=== PATIENT | female | born 1945 | race Caucasian/White ===

== ENCOUNTER → 2019-07-23 | Outpatient (CLI) | payer MEDICARE ==
--- NOTE | 2019-07-23 14:06 | Diagnostic Imaging Report ---
EXAM: CT Abdomen and Pelvis WITHOUT intravenous contrast INDICATION: Renal calculus, flank pain COMPARISON: None TECHNIQUE: Abdomen and pelvis were scanned utilizing a multidetector helical scanner from the lung base to the pubic symphysis without administration of IV contrast. Coronal and sagittal reformations were obtained. IV CONTRAST: None ORAL CONTRAST: None COMPLICATIONS: None RADIATION DOSE: Total DLP: 183.9 mGy*cm Dose modulation, iterative reconstruction, and/or weight based adjustment of the mA/kV was utilized to reduce the radiation dose to as low as reasonably achievable. FINDINGS: LOWER THORAX: Normal. HEPATOBILIARY: No focal liver lesion. Status post cholecystectomy. SPLEEN: No splenomegaly. PANCREAS: No focal masses or ductal dilatation. ADRENALS: No adrenal nodules. KIDNEYS/URETERS: There is a 12 mm calculus at the left renal pelvis. Associated moderate left hydronephrosis. 2 mm left mid pole renal calculus. 10 mm calculus at the right renal pelvis with associated mild hydronephrosis. Scattered 1 to 2 mm right lower pole renal calculi. PELVIC ORGANS/BLADDER: Unremarkable. PERITONEUM / RETROPERITONEUM: No free air or fluid. LYMPH NODES: No lymphadenopathy. VESSELS: Scattered atherosclerotic calcifications of the nonaneurysmal abdominal aorta and major branches. GI TRACT: No abnormal bowel wall thickening. No bowel obstruction. BONES AND SOFT TISSUES: No acute osseous injury. No suspicious lytic or blastic lesions. Degenerative changes of the visualized spine and postoperative findings of posterior spinal fusion at L2-4. Grade 1 anterolisthesis at L1-2, grade 1 anterolisthesis at L3-4. IMPRESSION: Bilateral renal calculi measuring up to 12 mm on the left and 10 mm on the right. Moderate left hydronephrosis and mild right hydronephrosis. Signed by: Steffen Perry MD on 07/23/2019 2:02 PM
== END ==
LOC: CT 12:41
PROVIDERS: ATTEND Urology
DX: N20.0 Calculus of kidney (principal)
CPT/HCPCS: 74176

== ENCOUNTER → 2019-08-27 | Day surgery (SDC) | payer OTHER ==
[2019-08-25 16:09] LABS: BASOPHILS # (AUTO) 0.1 (0.0-0.1); BASOPHILS % 0.8 % (0.0-1.0); EOSINOPHILS # (AUTO) 0.1 (0.0-0.4); EOSINOPHILS % 1.3 % (0.0-6.0); HEMATOCRIT 38.5 % (34.2-44.1); HEMOGLOBIN 12.4 g/dL (12.0-16.0); LYMPHOCYTES # (AUTO) 1.6 (1.0-3.2); LYMPHOCYTES % 25.8 % (18.0-39.1); MEAN CORPUSCULAR HEMOGLOBIN 30.4 pg (28-32); MEAN CORPUSCULAR HGB CONC 32.2 g/dL (31-35); MEAN CORPUSCULAR VOLUME 94.4 fL (81-99); MONOCYTES # (AUTO) 0.4 (0.2-0.8); MONOCYTES % 6.6 % (4.4-11.3); NEUTROPHILS # (AUTO) 4.2 (2.1-6.9); NEUTROPHILS % 65.2 % (38.7-80.0); PLATELET COUNT 203 x10e3/uL (140-360); RED BLOOD COUNT 4.08 x10e6/uL (3.6-5.1)
[2019-08-25 16:26] LABS: ANION GAP 13.3 mmol/L (8-16); BLOOD UREA NITROGEN 20 mg/dL (7-26); BUN/CREATININE RATIO 28 (6-25); CARBON DIOXIDE 27 mmol/L (22-29); CHLORIDE 101 mmol/L (98-107); CREATININE, SERUM 0.71 mg/dL (0.57-1.11); EST GLOMERULAR FILTRATION RATE > 60 ML/MIN (60-); GLUCOSE 84 mg/dL (74-118); POTASSIUM 4.3 mmol/L (3.5-5.1); SODIUM 137 mmol/L (136-145)
--- NOTE | 2019-08-25 16:50 | Diagnostic Imaging Report ---
EXAMINATION: CHEST 2 VIEWS INDICATION: Pre-operative COMPARISON: None FINDINGS: LINES/TUBES:None LUNGS:The lungs are hyperinflated. No focal consolidation or pulmonary edema. PLEURA:No pleural effusion or pneumothorax. MEDIASTINUM:The cardiomediastinal silhouette appears normal in size and shape. BONES/SOFT TISSUES:No acute osseous injury. Unchanged anterolisthesis at L2-3. Partially visualized lumbar spine fusion hardware. ABDOMEN:No free air under the diaphragm. IMPRESSION: Hyperinflated lungs. No focal pneumonia or pulmonary edema. Signed by: Steffen Perry MD on 08/25/2019 4:47 PM
--- NOTE | 2019-08-25 16:53 | Diagnostic Imaging Report ---
Exam: KUB - 2 views Indication: Preoperative Comparison: CT abdomen and pelvis of 07/23/2019 Findings: Left midpole renal calculus measures up to 14 mm. Right lower pole renal calculus measures up to 10 mm. Status post lumbar spine posterior fusion. Nonobstructive bowel gas pattern. No free air. Degenerative changes of the spine and mild degenerative changes of both hip joints. Phleboliths in the pelvis. Impression: Bilateral renal calculi measuring up to 14 mm on the left and 10 mm on the right. Signed by: Steffen Perry MD on 08/25/2019 4:50 PM
[~2019-08-27] MED LIST: ALENDRONATE SOD70 MG PO; B&O 60MG R/S 60 MG SUPP PR ONE; CEFTRIAXONE SOD 1 GM/NS 50 ML 50 ML IV ONE; DEXAMETHASONE SOD PHOS INJ 4 MG/ML VIAL ONE; FISH OIL 1,0001 EAC2 PO; IOPAMIDOL 300MG/ML 50ML INFUS..BTL IV ONE; LIDOCAINE HCL 2% LOCAL INJ 5 ML SDV VIAL INJ ONE; MEPERIDINE HCL INJ 25 MG/ML VIAL ONE; MULTIVITAMINS1 EAC7 PO; ONDANSETRON HCL INJ 2MG/ML 2ML 2 MG/ML VIAL ONE; PROPOFOL IV EMULSION 10 MG/ML 20 ML VIAL ONE; SEVOFLURANE INHAL SOLN 250 ML PEN BTL ONE; VITAMIN D400 UNIT PO
--- OUTSIDE RECORDS SUMMARY | 2019-08-27 08:58 | XMS REPORT ---
Author [facility] Address Unknown Phone Unavailable Care Team Providers Care Environmental Sampling Technician Name Role Phone WENDI NEVILLE Unavailable Unavailable Payers Payer Name Policy Type Policy Number Effective Date Expiration Date Problems This patient has no known problems. Allergies, Adverse Reactions, Alerts Allergy Name Allergy Type Status Severity Reaction(s) Onset Date Inactive Date Treating Clinician Comments No Known Intolerances DA Active U 2013-02-19 00:00:00 Medications This patient has no known medications. Results Test Description Test Time Test Comments Text Results Atomic Results Result Comments ABDOMEN-1VIEW (SADA) 2019-08-25 16:47:00 [place] [address] Patient Name: AMIRAH GUZMAN MR #: [id number] : 1945 Age/Sex: 74/F Req #: [id number] Adm Physician: Ordered by: WENDI NEVILLE MD Report #: [id number] Location: OR Room/Bed: Procedure: [id number] DX/ABDOMEN-1VIEW (DINOB) Exam Date: 08/25/19 Exam Time: 1600 REPORT STATUS: Signed Exam: KUB - 2 views Indication: Preoperative Comparison: CT abdomen and pelvis of 07/23/2019 Findings: Left midpole renal calculus measures up to 14 mm. Right lower pole renal calculus measures up to 10 mm. Status post lumbar spine posterior fusion. Nonobstructive bowel gas pattern. No free air. Degenerative changes of the spine and mild degenerative changes of both hip joints. Phleboliths in the pelvis. Impression: Bilateral renal calculi measuring up to 14 mm on the left and 10 mm on the right. Signed by: Ifeanyi Cedeño MD on 08/25/2019 4:50 PM Dictated By: IFEANYI CEDEÑO MD 49 Transcribed By: GURWINDER on 08/25/191649 COPY TO: WENDI NEVILLE MD CHEST 2 VIEWS 2019-08-25 16:43:00 [place] [address] Patient Name: AMIRAH GUZMAN MR #: [id number] : 1945 Age/Sex: 74/F Req #: [id number] Adm Physician: Ordered by: WENDI NEVILLE MD Report #: [id number] Location: OR Room/Bed: Procedure: [id number] DX/CHEST 2 VIEWS Exam Date: 08/25/19 Exam Time: 1600 REPORT STATUS: Signed EXAMINATION: CHEST 2 VIEWS INDICATION: Pre-operative COMPARISON: None FINDINGS: LINES/TUBES:None LUNGS:The lungs are hyperinflated. No focal consolidation or pulmonary edema. PLEURA:No pleural effusion or pneumothorax. MEDIASTINUM:The cardiomediastinal silhouette appears normal in size and shape. BONES/SOFT TISSUES:No acute osseous injury. Unchanged anterolisthesis at L2-3. Partially visualized lumbar spine fusion hardware. ABDOMEN:No free air under the diaphragm. IMPRESSION: Hyperinflated lungs. No focal pneumonia or pulmonary edema. Signed by: Ifeanyi Cedeño MD on 08/25/2019 4:47 PM Dict ated By: IFEANYI CEDEÑO MD 46 Transcribed By: GURWINDER on 08/25/191646 COPY TO: WENDI NEVILLE MD CT ABDOMEN/PELVIS WO 2019-07-23 13:55:00 [place] [address] Patient Name: AMIRAH GUZMAN MR #: [id number] : 1945 Age/Sex: 74/F Req #: [id number] Adm Physician: Ordered by: WENDI NEVILLE MD Report #: [id number] Location: CT Room/Bed: Procedure: [id number] CT/CT ABDOMEN/PELVIS WO Exam Date: 07/23/19 Exam Time: 1311 REPORT STATUS: Signed EXAM: CT Abdomen and Pelvis WITHOUT intravenous contrast INDICATION: Renal calculus, flank pain COMPARISON: None TECHNIQUE: Abdomen and pelvis were scanned utilizing a multidetector helical scanner from the lung base to the pubic symphysis without administration of IV contrast. Coronal and sagittal reformations were obtained. IV CONTRAST: None ORAL CONTRAST: None COMPLICATIONS: None RADIATION DOSE: Total DLP: 183.9 mGy*cm Dose modulation, iterative reconstruction, and/or weight based adjustment of the mA/kV was utilized to reduce the radiation dose to as low as reasonably achievable. FINDINGS: LOWER THORAX: Normal. HEPATOBILIARY: No focal liver lesion. Status post cholecystectomy. SPLEEN: No splenomegaly. PANCREAS: No focal masses or ductal dilatation. ADRENALS: No adrenal nodules. KIDNEYS/URETERS: There is a 12 mm calculus at the left renal pelvis. Associated moderate left hydronephrosis. 2 mm left mid pole renal calculus. 10 mm calculus at the right renal pelvis with associated mild hydronephrosis. Scattered 1 to 2 mm right lower pole renal calculi. PELVIC ORGANS/BLADDER: Unremarkable. PERITONEUM / RETROPERITONEUM: No free air or fluid. LYMPH NODES: No lymphadenopathy. VESSELS: Scattered atherosclerotic calcifications of the nonaneurysmal abdominal aorta and major branches. GI TRACT: No abnormal bowel wall thickening. No bowel obstruction. BONES AND SOFT TISSUES: No acute osseous injury. No suspicious lytic or blastic lesions. Degenerative changes of the visualized spine and postoperative findings of posterior spinal fusion at L2-4. Grade 1 anterolisthesis at L1-2, grade 1 anterolisthesis at L3-4. IMPRESSION: Bilateral renal calculi measuring up to 12 mm on the left and 10 mm on the right. Moderate left hydronephrosis and mild right hydronephrosis. Signed by: Ifeanyi Cedeño MD on 07/23/2019 2:02 PM Dictated By: IFEANYI CEDEÑO MD 140 Transcribed By: GURWINDER on 07/23/19 140 COPY TO: WENDI NEVILLE MD
--- OUTSIDE RECORDS SUMMARY | 2019-08-27 08:58 | XMS REPORT | Summary of Care ---
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 Active Multi-Vitamin TABS TAKE 1 TABLET DAILY. * Refills: 0 Active Vitamin D CAPS ONE CAPSULE DAILY * Refills: 0 Active Fish Oil CAPS * Refills: 0 Active Probiotic CAPS * Refills: 0 Active levoFLOXacin 500 MG Oral Tablet TAKE 1 TABLET DAILY DIRECTED. * Quantity: 10 Refills: 0 WOJCIECH P.A., KIMBERLY * Start : 24-Jun-2019 Active Promethazine HCl - 25 MG Oral Tablet TAKE 1 TABLET EVERY 8 HOURS NEEDED FOR NAUSEA AND VOMITING. * Quantity: 15 Refills: 1 WOJCIECH P.A., KIMBERLY * Start : 28-Jun-2019 Active Allergies and Adverse Reactions Name Dates Details No Known Drug Allergies (Allergy) Status: Active Past Medical History Name Dates Details History of chest pain (V13.89, Z87.898) Status: Resolved History of Mammogram Status: Resolved History of osteoarthritis (V13.4, Z87.39) Status: Resolved History of osteopenia (V13.59, Z87.39) Status: Resolved History Of The ___ : Status: Resolved Procedures Procedure Dates Details US Renal 67616 Date: 23-Jun-2019 US Bladder 93953 Date: 23-Jun-2019 History of Back Surgery Completed History of Renal Lithotripsy Completed History of Appendectomy Completed History of Cholecystectomy Completed History of Lumbar Vertebral Fusion Completed Immunization Name Dates Details Prevnar 13 Intramuscular Suspension on: 20-Aug-2018 Shingrix 50 MCG Intramuscular Suspension Reconstituted on: Oct-2018 Shingrix 50 MCG Intramuscular Suspension Reconstituted on: 18-Jan-2019 Family History Name Dates Details Family history of Hypertension (V17.49) Status: Active Name Dates Details Family history of Cancer Status: Active Family history of Aplastic Anemia Status: Active Family history of Prolapsing Mitral Valve Leaflet Syndrome Status: Active Social History Name Dates Details - Status: Name Dates Details Never smoker Vital Signs Date Test Result Details 1-Kow-963757:39 BP Systolic 138 mm[Hg] Status: Comments: Location: LUE; Position: Sitting BP Diastolic 76 mm[Hg] Status: Comments: Location: LUE; Position: Sitting Height 65 in Status: Weight 117.5 lb Status: Body Mass Index Calculated 19.55 kg/m2 Status: Body Surface Area Calculated 1.58 m2 Status: Temperature 98.8 f Status: Comments: Method: Temporal Heart Rate 78 /min Status: Respiration Rate 16 /min Status: 7-Pig-842963:38 Physical Findings 0 Status: Comments: PHQ-9 Adult Depression Screening 3-Swu-628242:25 Physical Findings 0 Status: Comments: Alcohol Screen - How many times in the past yr have you had 5 (for M) or 4 (for F) or 4 (for all > 65yrs) or more drinks in a day? Results Date Description Value Details 7-Idm-574352:52 [O] Urine Dipstick (In Office) Glucose normal (Normal) LEUKOCYTES ++ NITRITE neg (Normal) UROBILINOGEN neg (Normal) PROTEIN 100 pH 5 URINE BLOOD about 250 SPECIFIC GRAVITY 1.025 KETONES neg (Normal) BILIRUBIN neg (Normal) COLOR URINE yellow (Normal) APPEARANCE clear (Normal) 5-Asp-342729:48 US Retroperitoneal Complete [id number] Retroperitoneal Complete US SEE NOTES Comments: EXAM: US RETROPERITONEAL COMPLETEDATE: 06/24/2019 10:48 CDTINDICATION: - R10.9 Unspecified abdominal painADDITIONAL INFORMATION: None.COMPARISON: None.TECHNIQUE: Multiplanar grayscale and color Doppler ultrasound of the kidneysand urinary bladder.FINDINGS:Right kidney:Hydronephrosis: Moderate pelviectasis.Size: 10.3 x 5.2 x 4.8 cm.Echogenicity: Normal.Calculi: 1.0 cm echogenic focus in the right renal pelvis with associatedpelviectasis.Cysts: None.Masses: None.Left kidney:Hydronephrosis: Moderate caliectasis versus hydronephrosis.Size: 10.4 x 4.9 x 4.6 cm.Echogenicity: Normal.Calculi: 1.4 cm echogenic shadowing stone in the left interpolar collectingsystem with adjacent caliectasis. 0.4 cm inferior pole nonspecific echogenicfocus may represent a vascular calcification.Cysts: None.Masses: None.Bladder: Moderately distended on initial images with bilateral ureteral jetsidentified. Post void residual volume is 12.8 cc. Possible posterior wallbladder diverticulum.Abdominal aorta/IVC:Visualized portions are unremarkable.Other:None.IMPRESSION:1. 1 cm stone in the right renal pelvis with associated moderate pelviectasis.There is no dieudonne hydronephrosis.2. 1.4 cm stone in the left interpolar collecting system with upper andinterpolar caliectasis/mild hydronephrosis.3. Possible small posterior bladder wall diverticulum. Bilateral distalureteral jets are patent.--Read by: Daniel Hogue MDDictated Date/time: 06/24/19 13:40Electronically Signed by: Daniel Hogue MD 06/24/1913:47FINAL REPORT 23-Jun-20190:00 [[facility]] CULTURE, URINE, ROUTINE CULTURE Comments: CULTURE, URINE, ROUTINE MICRO NUMBER: [id number] TEST STATUS: FINAL SPECIMEN SOURCE: NOT GIVEN SPECIMEN QUALITY: ADEQUATE RESULT: Multiple organisms present, each less than 10,000 CFU/mL. These organisms, commonly found on external and internal genitalia, are considered to be colonizers. No further testing performed. Plan of Care Name Dates Details Planned Observations Planned Goals not documented Interventions Provided Medication Changes* Promethazine HCl - 25 MG Oral Tablet - Start Instructions Name Dates Details Instructions not documented Encounters Appointment; KIMBERLY JEFFREY P.A. Encounter Diagnosis: Problem not documented On: 23-Jun-2019 13:30
--- NOTE | 2019-09-13 15:36 | Operative Report ---
DATE OF PROCEDURE: 08/27/2019 SURGEON: Ricardo Enrique MD PREOPERATIVE DIAGNOSES: 1. Left nephrolithiasis. 2. Bilateral hydronephrosis. 3. Urinary tract infections. POSTOPERATIVE DIAGNOSES: 1. Left nephrolithiasis. 2. Bilateral hydronephrosis. 3. Urinary tract infections. 4. Grade 2 cystocele. 5. Atrophic (senile) vaginitis. OPERATIONS PERFORMED: 1. Left-sided extracorporeal shockwave lithotripsy (separate procedure performed for two stones in renal pelvis measuring 14 mm in diameter). 2. Cystourethroscopy with bilateral ureteral catheterization and retrograde ureteropyelography (separate procedure performed for urinary tract infections). 3. Interpretation of retrograde ureteropyelography. 4. Supervision of fluoroscopy, no radiologist present. 5. Cystourethroscopy with insertion of bilateral indwelling ureteral stent (separate procedure performed to relieve the hydronephrosis). 6. Pelvic examination under anesthesia. ANESTHESIA: General. COMPLICATIONS: None. CLINICAL SUMMARY: Maisha Rodgers is a 74-year-old woman with bilateral nephrolithiasis. She is brought for the 1st of multiple staged procedures as part of managing her urolithiasis and multistage multistep process. She is aware of the risks of bleeding, infection, injury to adjacent structures, need for additional procedures and elected to proceed. OPERATIVE PROCEDURE IN DETAIL: Informed consent was verified. Maisha Rodgers was properly identified, taken to the operating room, placed on the lithotripsy table in supine position. Anesthesia was uneventfully begun. The patient's left nephrolithiasis was localized with biplanar fluoroscopy. A total of 3000 shocks were delivered with fragmentation of the patient's cluster 14 mm worth of stones. The patient was then carefully gently repositioned in the dorsal lithotomy position with all pressure points well padded. Her genitalia were prepared and draped in usual sterile fashion. The cystoscope sheath with obturator in place was atraumatically inserted into the patient's urethra and bladder was drained. Panendoscopy of the urinary bladder revealed no suspicious mucosal lesions, no tumors, no stones, no diverticula. There were some small little yellowish mucosal vesicles that were noted on the trigone. There were no suspicious lesions. An open-ended catheter was used to cannulate the right ureter and retrograde ureteral pyelograms were performed. A guidewire was then placed with cystoscopic fluoroscopic guidance. An indwelling ureteral stent was then placed. The same maneuver was performed on the left hand side. Interpretation of retrograde ureteropyelography contrast was instilled in a retrograde fashion bilaterally. There were filling defects corresponding bilaterally to the stones on left hand side also of the blood clots from the ESWL. The stents were in good position, coiled the patient's kidneys as well as the patient's bladder at the end of the case. There was bilateral hydronephrosis that was appreciated. The patient's bladder was drained. Cystoscope was withdrawn. Pelvic examination revealed a grade 2 cystocele with atrophic vaginitis. No abnormal palpable pelvic mass could be appreciated. There were no obvious mucosal lesions. The patient was then uneventfully reversed from anesthesia and taken to recovery room in stable condition. Explicit postop instructions were given. Plans will be to return the patient to the operating room for a right ESWL as the next step of her multistep procedure. Ricardo Enrique MD [place]/MODL /[id number] cc: Kathya Lr MD
== END | disposition home or self-care (01) ==
LOC: OR 08:56
PROVIDERS: ATTEND Urology
DX: N13.6 Pyonephrosis (principal); Z01.810 Encounter for preprocedural cardiovascular examination; Z01.812 Encounter for preprocedural laboratory examination; Z01.811 Encounter for preprocedural respiratory examination; Z01.818 Encounter for other preprocedural examination; Z87.442 Personal history of urinary calculi; R39.14 Feeling of incomplete bladder emptying; R31.29 Other microscopic hematuria; N32.3 Diverticulum of bladder; Z84.1 Family history of disorders of kidney and ureter; R35.1 Nocturia; R31.0 Gross hematuria; N81.10 Cystocele, unspecified; N95.2 Postmenopausal atrophic vaginitis
CPT/HCPCS: 36415; 50590; 52332; 71046; 74018; 80048; 83970; 84550; 85025; 93005; C2617; J0696; J1100; J2001; J2175; J2405; J2704; Q9967

== ENCOUNTER → 2019-12-03 | Day surgery (SDC) | payer MEDICARE ==
[2019-12-01 15:28] LABS: BASOPHILS % 0.3 % (0.0-1.0); EOSINOPHILS # (AUTO) 0.1 (0.0-0.4); HEMATOCRIT 38.8 % (34.2-44.1); HEMOGLOBIN 12.5 g/dL (12.0-16.0); LYMPHOCYTES # (AUTO) 1.3 (1.0-3.2); LYMPHOCYTES % 11.3 % (18.0-39.1); MEAN CORPUSCULAR HEMOGLOBIN 30.6 pg (28-32); MEAN CORPUSCULAR HGB CONC 32.2 g/dL (31-35); MEAN CORPUSCULAR VOLUME 95.1 fL (81-99); MONOCYTES # (AUTO) 0.8 (0.2-0.8); MONOCYTES % 6.3 % (4.4-11.3); NEUTROPHILS # (AUTO) 9.6 (2.1-6.9); NEUTROPHILS % 80.5 % (38.7-80.0); PLATELET COUNT 302 x10e3/uL (140-360); RED BLOOD COUNT 4.08 x10e6/uL (3.6-5.1); RED CELL DISTRIBUTION WIDTH 12.3 % (11.7-14.4)
[2019-12-01 15:43] LABS: ANION GAP 16.8 mmol/L (8-16); BLOOD UREA NITROGEN 24 mg/dL (7-26); BUN/CREATININE RATIO 30 (6-25); CALCIUM 9.7 mg/dL (8.4-10.2); CARBON DIOXIDE 24 mmol/L (22-29); CHLORIDE 103 mmol/L (98-107); CREATININE, SERUM 0.81 mg/dL (0.57-1.11); EST GLOMERULAR FILTRATION RATE > 60 ML/MIN (60-); GLUCOSE 100 mg/dL (74-118); POTASSIUM 3.8 mmol/L (3.5-5.1); SODIUM 140 mmol/L (136-145)
--- NOTE | 2019-12-01 15:48 | Diagnostic Imaging Report ---
Exam: KUB neck Comparison: October 27, 2019 Clinical history: Preoperative evaluation Findings: Bilateral double-J internal ureteral stents are again noted without interval change in position. The prior mentioned 1.1 cm right nephrolithiasis is not visualized on today's evaluation. A new 7.6 mm calcific density structure is seen overlying the left inferior pole kidney, this may represent nephrolithiasis. There is nonobstructive bowel gas pattern. Regional osseous structures are unchanged. The patient is status post L2-L4 fusion and laminectomy. Impression: 1. Bilateral internal ureteral stents unchanged in position. 2. Interval resolution of right nephrolithiasis. 3. New calcific density structure measuring 7.6 mm overlying the inferior pole left kidney which may represent nephrolithiasis. Signed by: Dr. Virgilio Hernandez MD on 12/01/2019 3:46 PM
[~2019-12-03] MED LIST changes: +AZO BLADDER CO300 MG; +FENTANYL CITRATE/PF 100MCG/2 ML INJ ONE; +GABAPENTIN300 MG PO; +GENTAMICIN 80MG/NS 100 ML 100 ML IV ONE; +MIDAZOLAM HCL 2 MG/2 ML VIAL ONE; +NORCO 5-325 TA1 EACH PO; +OXYBUTYNIN CHLOR5 MG PO; +PROBIOTIC250 MG PO
[2019-12-03 17:00] VITALS: BP 148/75
--- NOTE | 2020-01-09 15:31 | Operative Report ---
DATE OF PROCEDURE: 12/03/2019 SURGEON: Ricardo Enrique MD PREOPERATIVE DIAGNOSES: 1. Bilateral nephrolithiasis. 2. Bilateral indwelling ureteral stents. POSTOPERATIVE DIAGNOSES: 1. Bilateral nephrolithiasis. 2. Bilateral indwelling ureteral stents. 3. Grade 3 cystocele. 4. Atrophic (senile) vaginitis. OPERATION PERFORMED: Note these were all staged procedures as part of multi-staged and multi-step process in managing the patient's urolithiasis. 1. Cystourethroscopy with complicated removal of bilateral indwelling ureteral stents (separate procedure performed for the diagnosis of stent and stone with separate scope). 2. Bilateral ureteroscopy with stone manipulation (separate procedure performed for the bilateral nephrolithiasis). 3. Urological services for supervision and interpretation of ureteroscopy. 4. Interpretation of retrograde ureteropyelography. 5. Supervision of fluoroscopy, no radiologist present. 6. Pelvic examination under anesthesia. ANESTHESIA: General. COMPLICATIONS: None. CLINICAL SUMMARY: Maisha Rodgers is a 74-year-old woman with bilateral nephrolithiasis. She has undergone procedures. She is brought to the operating room in hopes of rendering her stent free and stone free. She is aware of the risks of bleeding, infection, injury to adjacent structures, need for additional procedures and elected to proceed. OPERATIVE PROCEDURE IN DETAIL: Informed consent was verified. Maisha Rodgers was properly identified and taken to the operating room, placed on the cystoscopy table in supine position. Anesthesia was uneventfully begun. The patient was then carefully gently repositioned in the dorsal lithotomy position with all pressure points well padded. Her genitalia prepared and draped in usual sterile fashion. Cystoscope sheath with obturator in place was atraumatically inserted in the patient's urethra and bladder was drained. Panendoscopy of the bladder revealed some sand and small stones within the bladder. There were stents emerging from both ureteral orifices, they were minimally encrusted, grade 2 trabeculations were noted. A guidewire was then placed into the right ureter and guided to the level of the patient's kidney. The stent was then grasped, completely removed and discarded. Semi-rigid ureteroscope was then placed alongside the guidewire and guided into the patient's ureter, it exhibited very fine sand, but no stones. We guided the flexible ureteroscope over the guidewire into the patient's right-sided upper tracts. Panendoscopy of the intrarenal collecting system revealed fine sand, but there were no tumors, there were no true stones, and there were no suspicious lesions. We irrigated the sand, manipulated it loose from the mucosa so that it may pass. We carefully examined the ureter as we exited and it was not obstructed and only fine sand remained within it. Cystoscope was reintroduced. A guidewire was then placed in the left ureter and guided to the level of the patient's kidney. The stent was then grasped, completely removed and discarded. Semi-rigid ureteroscope was then placed alongside the guidewire into the distal left ureter. There was some fine sand noted, but no stones large enough to grasp. This sand was irrigated to loosen it from the mucosa and it should be passable. Flexible ureteroscope was then placed over the guidewire and guided to the level of the patient's kidney. Panendoscopy revealed several small stones. Each of the stones were grasped with Nitinol tipless basket and extracted atraumatically. We then reintroduced the ureteroscope and extracted the next stone. Total of four stones were extracted from left hand side. There was some fine sand remaining and the sand was irrigated to loosen it from the mucosa and it should be passable. We carefully examined the ureter as we exited. There were no suspicious lesions. There was only fine sand and no additional stones remaining that could be grasped. Interpretation of retrograde ureteropyelography contrast was instilled in a retrograde fashion via the ureteroscope. There was some bilateral mild fullness noted with some mild calyceal blunting. The right kidney appeared ptotic, nevertheless appeared to be unobstructed drainage bilaterally. There was some fairly significant back hardware noted. The patient's bladder was then drained following after evacuating all sand and stone material. Pelvic examination under anesthesia revealed grade 3 cystocele. There was atrophic (senile) vaginitis. No abnormal palpable pelvic masses could be appreciated. There were no obvious mucosal lesions. The patient was then uneventfully reversed from anesthesia and taken to the recovery room in stable condition. There were no complications to the procedure. She tolerated the procedure well. PLANS: Will be to follow the patient up in the office, proceed with metabolic stone workup and of course with ongoing indefinite urological followup. Ricardo MD HAYDE Enrique/MAGY /[id number] cc: Kathya Lr MD
== END | disposition home or self-care (01) ==
LOC: OR 11:51
PROVIDERS: ATTEND Urology
DX: N20.0 Calculus of kidney (principal); Z96.0 Presence of urogenital implants; Z01.812 Encounter for preprocedural laboratory examination; Z01.810 Encounter for preprocedural cardiovascular examination; Z01.818 Encounter for other preprocedural examination; N81.10 Cystocele, unspecified; N95.2 Postmenopausal atrophic vaginitis
CPT/HCPCS: 36415; 52352; 74018; 74420; 80048; 84550; 85025; 88300; 93005; C1766; C1769; J0696; J1100; J1580; J2001; J2175; J2250; J2405; J2704; J3010; Q9967

== ENCOUNTER → 2020-04-05 | Outpatient (CLI) | payer MEDICARE ==
[~2020-04-05] MED LIST changes: -B&O 60MG R/S 60 MG SUPP PR ONE; -CEFTRIAXONE SOD 1 GM/NS 50 ML 50 ML IV ONE; -DEXAMETHASONE SOD PHOS INJ 4 MG/ML VIAL ONE; -FENTANYL CITRATE/PF 100MCG/2 ML INJ ONE; -GENTAMICIN 80MG/NS 100 ML 100 ML IV ONE; -IOPAMIDOL 300MG/ML 50ML INFUS..BTL IV ONE; -LIDOCAINE HCL 2% LOCAL INJ 5 ML SDV VIAL INJ ONE; -MEPERIDINE HCL INJ 25 MG/ML VIAL ONE; -MIDAZOLAM HCL 2 MG/2 ML VIAL ONE; -ONDANSETRON HCL INJ 2MG/ML 2ML 2 MG/ML VIAL ONE; -PROPOFOL IV EMULSION 10 MG/ML 20 ML VIAL ONE; -SEVOFLURANE INHAL SOLN 250 ML PEN BTL ONE
--- NOTE | 2020-04-05 15:41 | Diagnostic Imaging Report ---
TECHNIQUE: Single view of the abdomen. HISTORY: ^[id number] ^1525 ^CALCULUS OF KIDNEY. COMPARISON: 12/01/2019. IMPRESSION: Nonobstructive radiographic bowel gas pattern. No acute bony abnormality. No free air within the imaged abdomen. Previously visualized calcific density overlying the left renal shadow is not visualized. Interval removal of the ureteral stents. Signed by: Reggie Monson MD on 04/05/2020 3:37 PM
== END ==
LOC: RAD 15:15
PROVIDERS: ATTEND Urology
DX: N20.0 Calculus of kidney (principal)
CPT/HCPCS: 74018

== ENCOUNTER → 2020-08-24 | Outpatient (CLI) | payer MEDICARE | LOC: RAD 15:26 | PROVIDERS: ATTEND Urology | DX: N20.0 Calculus of kidney (principal) | CPT/HCPCS: 74018 ==

== ENCOUNTER → 2021-03-23 | Outpatient (CLI) | payer MEDICARE | LOC: RAD 15:22 | PROVIDERS: ATTEND Urology | DX: N20.0 Calculus of kidney (principal) | CPT/HCPCS: 74018 ==

== ENCOUNTER → 2021-09-10 | Outpatient (CLI) | payer MEDICARE | LOC: RAD 14:26 | PROVIDERS: ATTEND Urology | DX: N20.0 Calculus of kidney (principal) | CPT/HCPCS: 74018 ==

== ENCOUNTER → 2022-03-21 | Outpatient (CLI) | payer MEDICARE | LOC: RAD 14:32 | PROVIDERS: ATTEND Urology | DX: N20.0 Calculus of kidney (principal) | CPT/HCPCS: 74018 ==

== ENCOUNTER → 2023-03-19 | Outpatient (CLI) | payer MEDICARE | LOC: RAD 16:17 | PROVIDERS: ATTEND Urology | DX: N20.0 Calculus of kidney (principal) | CPT/HCPCS: 74018 ==

== ENCOUNTER → 2024-07-21 | Outpatient (REF) | payer MEDICARE | LOC: RAD 14:27 | PROVIDERS: ATTEND Urology | DX: N20.0 Calculus of kidney (principal) | CPT/HCPCS: 74018 ==

== ENCOUNTER → 2024-12-21 | Outpatient (REF) | payer MEDICARE | LOC: RAD 13:33 | PROVIDERS: ATTEND Urology | DX: N20.0 Calculus of kidney (principal) | CPT/HCPCS: 74018 ==

== ENCOUNTER → 2025-07-15 | Day surgery (SDC) | payer MEDICARE ==
[2025-07-12 14:45] LABS: BASOPHILS % 0.7 % (0.0-1.0); EOSINOPHILS % 1.7 % (0.0-6.0); LYMPHOCYTES % 21.5 % (18.0-39.1); MONOCYTES % 7.3 % (4.4-11.3); NEUTROPHILS % 68.4 % (38.7-80.0); RED CELL DISTRIBUTION WIDTH 12.4 % (11.7-14.4)
[2025-07-12 15:15] LABS: EST GLOMERULAR FILTRATION RATE 76.0 ML/MIN (>=60)
[~2025-07-15] MED LIST changes: +ACETAMINOPHEN 1000 MG/100 ML 100 ML IV ONE; +CALCIUM CITRAT1 EAC3 PO; +COLLAGEN PO; +DEXAMETHASONE SOD PHOS INJ 4 MG/ML SDV ONE; +ELIQUIS2.5 MG PO; +EPHEDRINE SULFATE INJ 50 MG/ML VIAL ONE; +FAMOTIDINE 20 MG/2 ML VIAL IV ONE; +FENTANYL CITRATE/PF 100MCG/2 ML INJ ONE; +HYDROCHLOROTHIA25 MG PO; +LIDOCAINE HCL 2% LOCAL INJ 5 ML SDV VIAL INJ ONE; +LIPITOR20 MG PO; +MAGNESIUM PO; +METOPROLOL SUCC25 MG PO; +ONDANSETRON HCL INJ 2MG/ML 2ML 2 MG/ML VIAL ONE; +PROBIOTIC1 EAC2 PO; +PROLIA60 MG/1 ML IM; +PROPOFOL IV EMULSION 10 MG/ML 20 ML VIAL ONE; +SEVOFLURANE INHAL SOLN 250 ML PEN BTL ONE; +SODIUM CHLORIDE 0.9% 1000ML 1,000 ML ONE; +VITAMIN B121000 MCG SL; +VITAMIN K240 MCG PO; +ZINC50 MG PO
[2025-07-15] MEDS: CEFTRIAXONE 1 GM VIAL ONE (07:21)
[2025-07-15] MEDS: SODIUM CHLORIDE 0.9% 1000ML 1,000 ML ONE (07:21)
[2025-07-15 10:22] VITALS: TEMP 97.6
[2025-07-15] MEDS: PHENAZOPYRIDINE HCL 100 MG TAB ONE (10:40)
[2025-07-15 11:05] VITALS: BP 140/79; PULSE 60; RESP 16; O2SAT 100
== END | disposition home or self-care (01) ==
LOC: OR 06:53
PROVIDERS: ATTEND Urology
DX: N20.0 Calculus of kidney (principal); N39.0 Urinary tract infection, site not specified; N81.10 Cystocele, unspecified; N95.2 Postmenopausal atrophic vaginitis; D64.9 Anemia, unspecified; I49.9 Cardiac arrhythmia, unspecified; E78.5 Hyperlipidemia, unspecified; Z01.810 Encounter for preprocedural cardiovascular examination; Z01.812 Encounter for preprocedural laboratory examination; Z01.818 Encounter for other preprocedural examination; Z79.02 Long term (current) use of antithrombotics/antiplatelets; Z79.899 Other long term (current) drug therapy
CPT/HCPCS: 36415; 50590; 71046; 80053; 83970; 84550; 85025; 87086; 93005; C1758; J0131; J0696; J1100; J1308; J2003; J2405; J2704; J3010; J7030

== ENCOUNTER → 2025-08-02 | Outpatient (REF) | payer MEDICARE ==
[~2025-08-02] MED LIST changes: -ACETAMINOPHEN 1000 MG/100 ML 100 ML IV ONE; -DEXAMETHASONE SOD PHOS INJ 4 MG/ML SDV ONE; -EPHEDRINE SULFATE INJ 50 MG/ML VIAL ONE; -FAMOTIDINE 20 MG/2 ML VIAL IV ONE; -FENTANYL CITRATE/PF 100MCG/2 ML INJ ONE; -LIDOCAINE HCL 2% LOCAL INJ 5 ML SDV VIAL INJ ONE; -ONDANSETRON HCL INJ 2MG/ML 2ML 2 MG/ML VIAL ONE; -PROPOFOL IV EMULSION 10 MG/ML 20 ML VIAL ONE; -SEVOFLURANE INHAL SOLN 250 ML PEN BTL ONE; -SODIUM CHLORIDE 0.9% 1000ML 1,000 ML ONE
== END ==
LOC: RAD 15:09
PROVIDERS: ATTEND Urology
DX: N20.0 Calculus of kidney (principal); N20.1 Calculus of ureter; Z87.442 Personal history of urinary calculi
CPT/HCPCS: 74018